=== PATIENT | male | born 1955 | race Caucasian/White ===

== ENCOUNTER 2022-04-05 17:59 | Emergency (ER) | payer MEDICARE ==
[~2022-04-05] VITALS: Ht 182.9 cm; Wt 90.0 kg
[2022-04-05 18:17] VITALS: BP 127/82
[2022-04-05 18:22] LABS: BASO% 1.6 % (0-3); EOS% 6.1 % (0-8); HEMATOCRIT 48.1 % (39.0-50.0); HEMOGLOBIN 15.9 g/dl (14.0-18.0); IMMATURE GRANULOCYTES 4.7 % (0.0-5.0); LYMPH% 33.9 % (15-41); MEAN CELL VOLUME 92.5 fL CALC (80.0-100.0); MEAN CORPUSCULAR HGB 30.6 pG CALC (26.0-32.0); MEAN CORPUSCULAR HGB CONC 33.1 g/dL CAL (32.0-36.0); MONO% 9.3 % (2-13); NEUT# 5.32 thou/uL (1.82-7.42); NEUT% 44.4 % (42-76); RED BLOOD COUNT 5.2 mill/uL (4.70-6.10); RED CELL DISTRI WIDTH 12.8 % (11.5-15.5)
[2022-04-05 18:30] VITALS: BP 149/91
[2022-04-05 18:36] LABS: ALBUMIN 4.2 g/dL (3.2-5.0); BILIRUBIN, TOTAL 0.9 mg/dL (0.2-1.3); CREATININE 1.5 mg/dL (0.7-1.3); POTASSIUM 3.3 mmol/l (3.5-5.1); TOTAL PROTEIN 7.5 g/dL (6.3-8.2)
[2022-04-05 18:37] LABS: PROTHROMBIN TIME 10.1 SECONDS (9.0-12.5)
[2022-04-05 18:45] VITALS: BP 126/79
[2022-04-05 19:06] VITALS: BP 126/79
== END 2022-04-05 19:06 | disposition short-term general hospital (02) ==
LOC: ED 17:59
PROVIDERS: Emergency Medicine
DX: I21.19 ST elevation (STEMI) myocardial infarction involving other coronary artery of inferior wall (principal); I49.01 Ventricular fibrillation; I46.2 Cardiac arrest due to underlying cardiac condition
CPT/HCPCS: J0282; J1644

== ENCOUNTER 2024-02-24 11:55 | Observation (INO) | payer MEDICARE ==
[2024-02-24] VITALS (29 sets, daily range): BP systolic 104–160; BP diastolic 67–91
[~2024-02-24] VITALS: Ht 182.9 cm; Wt 74.0 kg
--- NOTE | 2024-02-24 12:27 | NUR ---
PT TO ROOM WITH STEADY GAIT
[2024-02-24] MEDS ORDERED: ASPIRIN 81 MG/TAB PO ONE (12:30)
[2024-02-24 13:16] LABS: BASO% 1.2 % (0-3); EOS% 3.6 % (0-8); HEMATOCRIT 48.5 % (39.0-50.0); HEMOGLOBIN 16.1 g/dl (14.0-18.0); IMMATURE GRANULOCYTES 0.8 % (0.0-5.0); LYMPH% 15.1 % (15-41); MEAN CELL VOLUME 93.3 fL CALC (80.0-100.0); MEAN CORPUSCULAR HGB CONC 33.2 g/dL CAL (32.0-36.0); MONO% 7.7 % (2-13); NEUT# 5.43 thou/uL (1.82-7.42); NEUT% 71.6 % (42-76); RED BLOOD COUNT 5.2 mill/uL (4.70-6.10); RED CELL DISTRI WIDTH 12.6 % (11.5-15.5)
--- NOTE | 2024-02-24 13:23 | NUR ---
PT DENIES C/P AT PRESENT TIME.
[2024-02-24 14:03] LABS: ALBUMIN 4.5 g/dL (3.2-5.0); ALKALINE PHOSPHATASE 83 u/l (38-126); BILIRUBIN, TOTAL 1.2 mg/dL (0.2-1.3); BUN 23 mg/dL (8-23); BUN/CREATININE RATIO 24 (12-20 (CALC)); CHLORIDE 106 mmol/l (95-108); ESTIMATED GFR 81 ML/MIN (>=90 (CALC)); SGOT/AST 92 u/l (19-48); SODIUM 140 mmol/l (137-146); TOTAL PROTEIN 7.9 g/dL (6.3-8.2)
[2024-02-24 14:04] LABS: ANION GAP 11 (6-22 (CALC)); CARBON DIOXIDE 28 mmol/l (22-30)
--- NOTE | 2024-02-24 15:30 | NUR ---
PT ADVISED OF WAIT TIME-DENIES C/O PAIN.
--- NOTE | 2024-02-24 16:30 | NUR ---
NO CHANGE IN ASSESSMENT-PT RESTING DENIES C/P.
[2024-02-24] MEDS ORDERED: ACETAMINOPHEN 325 MG/TAB PO PRN (17:00)
[2024-02-24] MEDS ORDERED: MAGNESIUM HYDROXIDE 30 ML UDC PO PRN (17:00)
[2024-02-24] MEDS ORDERED: PANTOPRAZOLE SODIUM Sesquihydr 40 MG/TAB PO SCH (17:30)
--- NOTE | 2024-02-24 18:00 | NUR ---
PT ADVISED OF CONTINUED WAIT TIME.
[2024-02-24] MEDS ORDERED: PROTONIX40 M2 PO (18:06)
[2024-02-24] MEDS ORDERED: METOPROL TAR25 MG PO (18:06)
[2024-02-24] MEDS ORDERED: ASPIRIN PO (18:07)
--- NOTE | 2024-02-24 18:29 | NUR ---
PT ALERT AND ORIENTED X 3. LUNGS CLEAR, RA. AMBULATORY. NO COMPLAINT OF CHEST PAIN OR SHORTNESS OF BREATH.
--- NOTE | 2024-02-24 20:00 | NUR ---
., PEDRO AT BEDSIDE. GOT REPORT FROM CHAPIS BLAIR AT 1915 IN ED. TRANSPORTED PATIENT AT 1930 TO ICU
[2024-02-24] MEDS ORDERED: ENOXAPARIN SODIUM 40 MG/0.4 ML SYR SC SCH (21:00)
[2024-02-24] MEDS ORDERED: METOPROLOL TARTRATE 25 MG/TAB PO SCH (21:48)
--- NOTE | 2024-02-24 22:00 | NUR ---
PATIENT INQUIRED ABOUT HIS MEDICATION REGIMEN OF METOPROLOL 12.5MG; CALLED DR. CASAREZ TO RESTART MEDICATION AT @2100. NEW ORDERS PLACED.
[2024-02-25] VITALS: BP 101/54
--- NOTE | 2024-02-25 | NUR ---
PATIENT RESTING AND GAVE PATIENT A WARM BLANKET
[2024-02-25 02:00] VITALS: BP 98/57
[2024-02-25 04:00] VITALS: BP 94/59
[2024-02-25 05:40] LABS: ALBUMIN 3.9 g/dL (3.2-5.0); BILIRUBIN, TOTAL 0.8 mg/dL (0.2-1.3); CHOLESTEROL HDL RATIO 4.5 (<4.4 (CALC)); CREATININE 0.9 mg/dL (0.7-1.3); MAGNESIUM 2.1 mg/dL (1.6-2.3); TOTAL PROTEIN 6.6 g/dL (6.3-8.2)
[2024-02-25 05:42] LABS: BASO% 1.3 % (0-3); HEMATOCRIT 44.7 % (39.0-50.0); HEMOGLOBIN 15.1 g/dl (14.0-18.0); IMMATURE GRANULOCYTES 0.7 % (0.0-5.0); LYMPH% 25.9 % (15-41); MEAN CELL VOLUME 94.1 fL CALC (80.0-100.0); MEAN CORPUSCULAR HGB 31.8 pG CALC (26.0-32.0); MEAN CORPUSCULAR HGB CONC 33.8 g/dL CAL (32.0-36.0); MONO% 10.8 % (2-13); NEUT# 3.75 thou/uL (1.82-7.42); NEUT% 55.3 % (42-76); RED BLOOD COUNT 4.75 mill/uL (4.70-6.10); RED CELL DISTRI WIDTH 12.7 % (11.5-15.5)
[2024-02-25 06:00] VITALS: BP 103/61
--- NOTE | 2024-02-25 07:19 | NUR ---
GOT REPORT FROM DIAL EQUIPMENT ENGINEER, NO S.S OF DISTRESS; PATIENT TALKING TO PROVIDER; NO COMPLAINTS; CALL LIGHT WITHIN REACH;SAFETY MEASURES IN PLACE
[2024-02-25 08:00] VITALS: BP 115/67
--- NOTE | 2024-02-25 08:33 | NUR ---
patient a/o x3; room air; breathing unlabored and even; denied any pain; denied any chest pain; denied any n/d/v at this time; denied any complaints; tele leads intact and working with no issues; iv site clean and intact running saline locked with no issues; call light within reach, verbalized understanding on how to use, personal itesm within reach,bed in lowest postion;saftey measures in place
--- NOTE | 2024-02-25 08:59 | NUR ---
patient a/o x3; room air; breathing unlabored and even; denied any n/d/v at this time; patient denied any pain or issues at this time; no s.s of distress at this time; iv site clean and intact saline locked with no issues; tele leads intact and working; patient sitting on the side of bed on his computer; call light within reach,verbalized understanding on how to use, personal items within reach; bed in lowest postion;safety measures in place
[2024-02-25] MEDS ORDERED: ASPIRIN EC 81 MG/TAB PO SCH (09:00)
[2024-02-25 10:00] VITALS: BP 116/69
--- NOTE | 2024-02-25 10:00 | NUR ---
patient sitting in bed waiting for his to come to pick him up; educated and reviewd discharge paperwork and got forms signed; patient requested for labs to be printed, printed for patient and blocked any personal information; no s/s of disress; call light within reach; bed in lowest postion; saftey measures in place; no complaints
--- NOTE | 2024-02-25 11:04 | NUR ---
IV site discontinued, cath intact. No edema , no redness, voices no discomfort. Discharge instructions given. Patient verbalizes understanding of same. Discharged in stable condition via Ambulatory to Home with family. All belongings sent with pt.
--- NOTE | 2024-03-02 11:08 | NUR ---
Discharge follow up call completed 03/02/24. Patient states he is doing well and has hd no issues since discharge. Patient was not prescribed medication at discharge. Patient plans to esstablish with a local PCP in the next few days but has not done so yet. No needs or concerns verbalized a this time.
== END 2024-02-25 11:02 | disposition home or self-care (01) ==
LOC: ED 11:55 → ED-I 12:44 → ED 12:44 → ICU 16:28
PROVIDERS: Family Medicine; Nurse Practitioner Family; ADMIT Internal Medicine; ATTEND Internal Medicine
DX: R07.9 Chest pain, unspecified (principal); I25.10 Atherosclerotic heart disease of native coronary artery without angina pectoris; E78.5 Hyperlipidemia, unspecified; I25.2 Old myocardial infarction; Z95.1 Presence of aortocoronary bypass graft; Z86.74 Personal history of sudden cardiac arrest
CPT/HCPCS: J1650